=== PATIENT | female | born 2000 | race Native Hawaiian/Other Pacific Islander ===

== ENCOUNTER 2025-01-24 21:56 | Emergency (ER) | payer BC, SELFPAY ==
--- OUTSIDE RECORDS SUMMARY | 2025-01-24 21:57 | XMS_ITS | Clinical Summary ---
Author Organization [employer] [facility] Address [address] [place] [address] Care Team Providers Care Orthopedic Shoes Salesperson Name Role Phone Sheyla Jiang MD Primary Care Provider Allergies No known active allergies Medications No known medications Active Problems Problem Noted Date Diagnosed Date LGSIL of cervix of undetermined significance Overview (08/28/2024): 08/2023 LSIL 08/2024 LSIL. Plan: Pap due 08/2025. Amenorrhea 04/29/2017 Unspecified adjustment reaction 05/01/2011 UTI (lower urinary tract infection) 05/01/2011 Obesity, unspecified 06/19/2008 Resolved Problems Problem Noted Date Diagnosed Date Resolved Date Posttraumatic wound infectio n not elsewhere classified 06/19/2008 11/14/2008 Immunizations Immunization Administration Dates Next Due COVID-19 vaccine (VetCloudBio NTech 30mcg/0.3mL) PF, MDV 02/24/2021,02/03/2021 DTaP 11/21/2005, 3,01/20/2002,11/25,2001 HIB-HepB (Comvax) 12/04/2002,2001,08/11/20 01 Hepatitis A (Peds) 06/03/2012,11/14/2008 Human Papilloma Virus Vaccine 12/19/2013, 013,06/03/2012 INFLUENZA, IIV3 PF (AGE >= 6 MO) 08/18/2024 Inactivated Polio Vaccine 05/21/2006,,2001,08/11 Influenza, IIV3 (Age >=3 years) 08/20/2011,11/14 Influenza, IIV4 08/16/2023 Influenza, IIV4 (=>6mos) MDV 07/23/2020 MENINGOCOCCAL VACCINE 2 VIAL 2MO-55YO (MENVEO) 06/03/2012 MMR 05/21/2006,06/30/2002 Pneumococcal conj 7-Valent (Prevnar 7) 0 12/04/2002,01/20/2002,2001,08/11 Tdap 08/16/2023,06/03/2012 Varicella Vaccine 11/14/2008,06/30/2002 Family History Medical History Relation Name Comments Cancer Brother brain, passed a way Diabetes Maternal Grandmother Diabetes Maternal Uncle Anesthesia Problem No Family History Blood Disease No Family History Relation Name Status Comments Brother Maternal Grandmother Maternal Uncle Social History Tobacco Use Types Packs/Day Years Used Date Smoking Tobacco: Never Smokeless Tobacco: Never Tobacco Cessation:Counseling Given: Yes Comments:no exposure Alcohol Use Standard Drinks/Week Comments No 0 (1 standard drink = 0.6 oz pur e alcohol) PHQ-2 Answer Date Recorded PHQ-2 TOTAL SCORE 3 08/18/2024 Social Connections Answer Date Recorded Do you often feel lonely or isolated from those around you? 0 09/03/2023 Financial Resource Strain Answer Date R ecorded Difficulty of Paying Living Expenses 2 09/03/2023 Difficulty of Paying Living Expenses 1 09/03/2023 Food Insecurity Answer Date Recorded Do you worry your food will run out before you are able to buy more? 1 09/03/2023 Transportation Needs Answer Date Record ed Does lack of transportation keep you from medica l appointments? 1 09/03/2023 Does lack of transportation keep you from work, meetings or getting things that you need? 1 09/03/2023 Housing Stability Answer Date Recorded What is your housing situation today? 1 09/03/2023 Comments No Sex and Gender Information Value Date Recorded Sex Assigned at Not on file Legal Sex Female 5:44 AM ELECTRICAL TRYOUT PERSON Gender Identity Not on file Sexual Orientation Not on file Obstetrics History Last Filed Vital Signs Vital Sign Reading Time Taken Comments Blood Pressure 111/78 08/18/2024 9:07 AM ELECTRICAL TRYOUT PERSON Pulse 73 08/18/2024 9:07 AM ELECTRICAL TRYOUT PERSON Temperature 36.7 C (98.1 F) 11/12/2023 4:31 PM ELECTRICAL TRYOUT PERSON Respiratory Rate 16 11/12/2023 4:50 PM ELECTRICAL TRYOUT PERSON Oxygen Saturation 99% 08/18/2024 9:07 AM ELECTRICAL TRYOUT PERSON Inhaled Oxygen Concentration - - Weight 142.4 kg (314 lb) 08/18/2024 9:07 AM ELECTRICAL TRYOUT PERSON Height 162.6 cm (5' 4) 08/18/2024 9:07 AM ELECTRICAL TRYOUT PERSON Body Mass Index 53.9 08/18/2024 9:07 AM ELECTRICAL TRYOUT PERSON Plan of Treatment Health Maintenance Due Date Last Done Comments COVID-19 vaccine series ( season) 2024 02/24/2021, 02/03/2021 BMI (ht and wt on same day) for age 18+ 08/18/2025 08/18/2024, 10/12/2023, 08/16/2023 Depression screening for age 12+ 08/18/2025 08/18/2024, 08/16/2023, 04/29/2017 Pap test for age 21-65 08/18/2025 08/18/2024, 2022 Tetanus booster 08/16/2033 08/16/2023, 06/03/2012 Pneumococcal series for age 6-49 Aged Out 12/04/2002, 01/20/2002, 2001, Additional history exists No longer eligible based on patient's age to complete this topic HPV series for age 9-26 Completed 12/20/19 14, 05/24/2013, 06/03/2012 HIV for age 15-65 Completed 08/16/2023 Hepatitis C screening for age 18-79 Completed 08/16/2023 Tdap Completed 08/16/2023, 06/03/2012 Influenza Vaccine Completed 08/18/2024, , 07/23/2020, Additional history exists Medical Devices Implanted Type Area Inspector Tester Sorter Device Identifier Shelf Expiration Date Model / Serial / Lot Sys Intrauterine Mirena - [id number] Implanted:Qty: 1 on 11/12/2023 by Brad Mcfadden MD at [facility] N/A: Uterus Nival 09/03/2025 [id number] / / [id number] Procedures Procedure Name Priority Date/Time Associated Diagnosis Comments BUSINESS TRANSFORMATION CONSULTANT THIN PREP PAP - AGES 21-24 ([facility]) Routine 08/18/2024 10:29 AM ELECTRICAL TRYOUT PERSON Screening for cervical cancer ANTI HIV 1/2 Routine 08/16/2023 8:27 AM ELECTRICAL TRYOUT PERSON Screening for HIV (human immunodeficiency virus) ANTI HCV Routine 08/16/2023 8:27 AM ELECTRICAL TRYOUT PERSON Need for hepatitis C screening test from Last 3 Months or Most Recently Relevant to Health Maintenance Results * (ABNORMAL) BUSINESS TRANSFORMATION CONSULTANT THIN PREP PAP - AGES 21-24 ([facility]lynx) [[id number]] (08/18/2024 10:29 AM ELECTRICAL TRYOUT PERSON) CLINICAL INFORMATION [employer] Comment:None given LMP [employer] [place] Comment:HORMONALLY SUPRESSED PREV. PAP [employer] [place] Comment:LSIL PREV. BX [employer] [place] Comment:NONE SOURCE BUSINESS TRANSFORMATION CONSULTANT [employer] salv[place] Comment:Cervix STATEMENT OF ADEQUACY [employer] salv[place] Comment: Satisfactory for evaluation. Endocervical/transformation zone component present. GENERAL CATEGORIZATION (A) [employer] salv[place] Comment:Cytology Results: Ep ithelial Cell Abnormality INTERPRETATION/RESUL T (A) [employer] Comment:Low Grade Squamous I ntraepithelial Lesion (LSIL) COMMENT [employer] [place] Comment: This Pap test has been evaluated with computer assisted technology. Suggest clinical correlation and follow-up as clinically appropriate DISCHARGE COORDINATOR Que [employer] salvador Comment: SARAHS, CT(ASCP) CT Screening location: [address] [address] PATHOLOGIST [facility] [employer] salv[place] Comment: Debi Ribeiro MD Board Certified in Anatomic Pathology and Clinical Pathology (electronic signature) THINPREP TIS PAP ALWAYS MESSAGE [employer] salv[place] Comment: EXPLANATORY NOTE: The Pap is a screening test for cervical cancer. It is not a diagnostic test and is subject to false negative and false positive results. It is most reliable when a satisfactory sample, regularly obtained, is submitted with relevant clinical findings and history, and when the Pap result is evaluated along with historic and current clinical information. Other (Cervical) 08/18/2024 10:29 AM ELECTRICAL TRYOUT PERSON 08/19/2024 5:15 AM ELECTRICAL TRYOUT PERSON Sheyla Jiang MD PATHOLOGY/CYTOLOGY Syeda l Result Performing Organization Address City/[facility]/ZIP Co de Phone Number [facility] [address] [place] [address], [facility] [address] [place] [address] * ANTI HCV (08/16/2023 8:27 AM ELECTRICAL TRYOUT PERSON) HEPATITIS C ANTIBODY Non-Reacti ve Non-React addi 08/16/2023 4:06 PM ELECTRICAL TRYOUT PERSON [facility] Comment:Please note, per www .CDC.gov: If a patient is known to be at high risk of HCV infection, or is symptomatic, and the physician's suspicion of HCV infection is high, HCV RNA testing is often employed and is of diagnostic value, even after an initial negative anti-HCV test result. Blood BLOOD SPECIMEN / Unknown Venipuncture / Unknown 08/16/2023 8:27 AM ELECTRICAL TRYOUT PERSON 08/16/2023 8:27 AM ELECTRICAL TRYOUT PERSON Sheyla Jaing MD SEND OUTS Final R esult Performing Organization Address City/[facility]/ZIP Co de Phone Number [facility] [address] [place] [address], [place] * ANTI HIV 1/2 [[id number]] (08/16/2023 8:27 AM ELECTRICAL TRYOUT PERSON) HIV-1/HIV-2 SCREEN Non-Reacti ve Non-Reacti ve 08/16/2023 3:32 PM ELECTRICAL TRYOUT PERSON [facility] Comment:HIV-1 p24 and HIV-1/ HIV-2 Ab Not Detected. Blood BLOOD SPECIMEN / Unknown Venipuncture / Unknown 08/16/2023 8:27 AM ELECTRICAL TRYOUT PERSON 08/16/2023 8:27 AM ELECTRICAL TRYOUT PERSON Sheyla Jiang MD SEND OUTS Final R esult [facility] [address] [place] [address], from Last 3 Months or Most Recently Relevant to Health Maintenance Insurance [facility] NON-NM-ITS Advance Directives * Full Code (Latest Code Status on File) Date Activated Date Inactivated Comments 11/12/2023 11:05 AM 11/12/2023 7:19 PM Question Answer Comments Code Status Discussion: Reviewed Preferences Care Teams Orthopedic Shoes Salesperson Relationship Specialty Start Date End Date Sheyla Jiang MD [facility] [place] [address] PCP - General Family Practice 12/05/13
[2025-01-24 22:15] VITALS: BP 119/77; PULSE 75; RESP 18; TEMP 36.3; O2SAT 96
--- NOTE | 2025-01-24 23:35 | ED_ITS ---
HPI - General Adult General Time Seen by Provider: 23:35 Date Seen: 01/24/25 Chief complaint: Extremity Pain/Injury, Lower Stated complaint: Left big toe pain Time Seen by Provider: 01/24/25 23:30 Source: patient and RN notes reviewed Mode of arrival: ambulatory Limitations: no limitations History of Present Illness HPI narrative: This 24-year-old female comes in with left big toe pain. She trimmed her nail on this toe about 2 days ago, feel she cut it too short. She has not noticed any drainage. It is the outside of the nail fold that hurts. Her mom looked at it, thought it might be infected. It is painful to touch, she can still walk. She is walking with open toed shoes right now. Review of Systems Status of ROS: Reports: 6 or more systems reviewed and unremarkable except as noted in History and below PFSH PFSH Social History Smoking Status: Never smoker Do you use any of these nicotine containing products: None How often do you have a drink containing alcohol: never AUDIT-C Alcohol total score: 0 Non-prescribed substance use: denies use Exam Const: Vital Signs, click to edit/add: Vital Signs - 24 hr 01/24/25 22:15 Temperature 97.3 F L Pulse Rate [Pulse Oximeter] 75 Respiratory Rate 18 Blood Pressure [] 119/77 Pulse Oximetry 96 Oxygen Delivery Me thod Room Air This 24-year-old female is alert, interactive, no apparent distress. She is afebrile. Her lateral nail fold of her 1st big toe is erythematous, tender, swollen. There is no drainage, no fluctuance. Her nail is trimmed quite short on this toe. Documenting provider has reviewed patient's vital signs: yes Course Course ED Course: Patient would appear to have an infected ingrown toenail. There is no fluctuance, nothing to drain at this time. Discussed that we should initiate antibiotics, will give her Keflex from [facility], 20 pills at 3 times a day. Reviewed warm soaks and follow up in clinic with her primary, consider podiatry consultation. Vital Signs Vital signs: Initial Vital Signs Temperature 97.3 F L 01/24/25 22:15 Temperature Source Temporal Artery Scan 01/24/25 22:15 Pulse Rate 75 01/24/25 22:15 Respiratory Rate 18 01/24/25 22:15 Blood Pressure 119/77 01/24/25 22:15 Blood Pressure Mean 91 01/24/25 22:15 Blood Pressure Position Sitting 01/24/25 22:15 Pulse Oximetry 96 01/24/25 22:15 Oxygen Delivery Method Room Air 01/24/25 22:15 Vital Signs Temperature 97.3 F L 01/24/25 22:15 Pulse Rate 75 01/24/25 22:15 Respiratory Rate 18 01/24/25 22:15 Blood Pressure 119/77 01/24/25 22:15 Pulse Oximetry 96 01/24/25 22:15 Oxygen Delivery Method Room Air 01/24/25 22:15 Temperature 97.3 F L 01/24/25 22:15 Pulse Rate 75 01/24/25 22:15 Respiratory Rate 18 01/24/25 22:15 Blood Pressure 119/77 01/24/25 22:15 Pulse Oximetry 96 01/24/25 22:15 Oxygen Delivery Method Room Air 01/24/25 22:15 Discharge Plan Discharge Clinical Impression: Ingrown toenail of left foot with infection Patient Disposition: Home, Self-Care Condition: Stable Instructions: Ingrown Nail (ED), Warm Compress or Soak (ED) Additional Instructions: Take the Keflex 500 mg 3 times a day until completed. Can use Tylenol and ibuprofen per bottle directions as needed for pain control. Do warm soaks of t his toe, warm water for 10-15 minutes 3 to 4 times a day for the next 3-5 days. Need to follow-up with your primary care provider in clinic. Consider podiatry consultation. Activity Level: Activity as Tolerated Stand Alone Forms: MyHealth Info Instructions
--- OUTSIDE RECORDS SUMMARY | 2025-01-24 23:50 | XMS_ITS | Clinical Summary ---
Author Organization [employer] [facility] Address [address] [place] [address] Care Team Providers Care Streetcar Starter Name Role Phone Sheyla Jiang MD Primary [...] Immunization Administration Dates Next Due COVID-19 vaccine ([employer]cloud ([place]) Information and TechnologyBio NTech 30mcg/0.3mL) PF, MDV 02/24/2021,02/03/2021 DTaP 11/21/2005, [...] on file Legal Sex Female 5:44 AM BREADMAN Gender Identity Not on file Sexual Orientation Not on file Obstetrics History Last Filed Vital Signs Vital Sign Reading Time Taken Comments Blood Pressure 111/78 08/18/2024 9:07 AM BREADMAN Pulse 73 08/18/2024 9:07 AM BREADMAN Temperature 36.7 C (98.1 F) 11/12/2023 4:31 PM BREADMAN Respiratory Rate 16 11/12/2023 4:50 PM BREADMAN Oxygen Saturation 99% 08/18/2024 9:07 AM BREADMAN Inhaled Oxygen Concentration - - Weight 142.4 kg (314 lb) 08/18/2024 9:07 AM BREADMAN Height 162.6 cm (5' 4) 08/18/2024 9:07 AM BREADMAN Body Mass Index 53.9 08/18/2024 9:07 AM BREADMAN Plan of Treatment Health Maintenance Due Date [...] history exists Medical Devices Implanted Type Area Dock Operations Supervisor Device Identifier Shelf Expiration Date Model / Serial / Lot Sys Intrauterine Mirena - [id number] Implanted:Qty: 1 on 11/12/2023 by Brad Mcfadden MD at [facility] N/A: Uterus Stootie 09/03/2025 [id number] / / [id number] Procedures Procedure Name Priority Date/Time Associated Diagnosis Comments FAMILY CONSULTANT THIN PREP PAP - AGES 21-24 ([facility]) Routine 08/18/2024 10:29 AM BREADMAN Screening for cervical cancer ANTI HIV 1/2 Routine 08/16/2023 8:27 AM BREADMAN Screening for HIV (human immunodeficiency virus) ANTI HCV Routine 08/16/2023 8:27 AM BREADMAN Need for hepatitis C screening test from Last 3 Months or Most Recently Relevant to Health Maintenance Results * (ABNORMAL) FAMILY CONSULTANT THIN PREP PAP - AGES 21-24 ([facility]) [[id number]] (08/18/2024 10:29 AM BREADMAN) CLINICAL INFORMATION [employer] Comment:None given LMP [employer] [place] Comment:HORMONALLY SUPRESSED PREV. PAP [employer] [place] Comment:LSIL PREV. BX [employer] [place] Comment:NONE SOURCE FAMILY CONSULTANT [employer] salv[place] Comment:Cervix STATEMENT OF ADEQUACY [employer] [place] Comment: Satisfactory for evaluation. Endocervical/transformation zone component present. GENERAL CATEGORIZATION (A) [employer] [place] Comment:Cytology Results: Ep ithelial Cell Abnormality INTERPRETATION/RESUL T (A) [employer] Comment:Low Grade Squamous I ntraepithelial Lesion (LSIL) COMMENT [employer] [place] Comment: This Pap test has been evaluated with computer assisted technology. Suggest clinical correlation and follow-up as clinically appropriate RECEPTION Que [employer] salv[place] Comment: SARAHS, CT(ASCP) CT Screening location: [address] [address] PATHOLOGIST [facility] [employer] salvador Comment: Debi Ribeiro MD Board Certified in Anatomic Pathology and Clinical Pathology (electronic signature) THINPREP TIS PAP ALWAYS MESSAGE [employer] salv[place] Comment: EXPLANATORY NOTE: The Pap is [...] clinical information. Other (Cervical) 08/18/2024 10:29 AM BREADMAN 08/19/2024 5:15 AM BREADMAN Sheyla Jiang MD PATHOLOGY/CYTOLOGY Syeda l Result Performing Organization Address City/[facility]/ZIP Co de Phone Number [facility] [place] [address] [place] [address], [facility] [address] [place] [address] * ANTI HCV (08/16/2023 8:27 AM BREADMAN) HEPATITIS C ANTIBODY Non-Reacti ve Non-React addi 08/16/2023 4:06 PM BREADMAN [facility] Comment:Please note, per www .CDC.gov: If a patient is known to be at high risk of HCV infection, or is symptomatic, and the physician's suspicion of HCV infection is high, HCV RNA testing is often employed and is of diagnostic value, even after an initial negative anti-HCV test result. Blood BLOOD SPECIMEN / Unknown Venipuncture / Unknown 08/16/2023 8:27 AM BREADMAN 08/16/2023 8:27 AM BREADMAN Sheyla Jiang MD SEND OUTS Final R esult Performing Organization Address City/[facility]/ZIP Co de Phone Number [facility] [address] [place] [address], [place] * ANTI HIV 1/2 [93786.0] (08/16/2023 8:27 AM BREADMAN) HIV-1/HIV-2 SCREEN Non-Reacti ve Non-Reacti ve 08/16/2023 3:32 PM BREADMAN [facility] Comment:HIV-1 p24 and HIV-1/ HIV-2 Ab Not Detected. Blood BLOOD SPECIMEN / Unknown Venipuncture / Unknown 08/16/2023 8:27 AM BREADMAN 08/16/2023 8:27 AM BREADMAN Sheyla Jiang MD SEND OUTS Final R esult [facility] [address] [place] [address], from Last 3 Months or Most Recently Relevant to Health Maintenance Insurance [facility] OF NON-[place]-ITS Advance Directives * Full Code (Latest Code Status on File) Date Activated Date Inactivated Comments 11/12/2023 11:05 AM 11/12/2023 7:19 PM Question Answer Comments Code Status Discussion: Reviewed Preferences Care Teams Streetcar Starter Relationship Specialty Start Date End Date Sheyla Jiang MD [facility] [place] [address] PCP - General Family Practice 12/05/13
== END 2025-01-24 23:52 | disposition home or self-care (01) ==
LOC: ED 23:48
PROVIDERS: Emergency Provider Family Medicine; PCP Family Medicine
DX: L60.0 Ingrowing nail (principal); L08.9 Local infection of the skin and subcutaneous tissue, unspecified
CPT/HCPCS: 99282; 99283

== ENCOUNTER 2025-05-20 13:11 | Emergency (ER) | payer BC, SELFPAY ==
--- OUTSIDE RECORDS SUMMARY | 2025-05-20 13:13 | XMS_ITS | Clinical Summary ---
Author Organization [facility] Address [address] [place] [id number] Care Team Providers Care Handle Maker Name Role Phone Sheyla Jiang MD Primary [...] Immunization Administration Dates Next Due COVID-19 vaccine ([employer]oomset[employer] NTech 30mcg/0.3mL) PF, MDV 02/24/2021,02/03/2021 DTaP 11/21/2005, [...] on file Legal Sex Female 5:44 AM SECURITY TEAM LEAD Gender Identity Not on file Sexual Orientation Not on file Obstetrics History Last Filed Vital Signs Vital Sign Reading Time Taken Comments Blood Pressure 111/78 08/18/2024 9:07 AM SECURITY TEAM LEAD Pulse 73 08/18/2024 9:07 AM SECURITY TEAM LEAD Temperature 36.7 C (98.1 F) 11/12/2023 4:31 PM SECURITY TEAM LEAD Respiratory Rate 16 11/12/2023 4:50 PM SECURITY TEAM LEAD Oxygen Saturation 99% 08/18/2024 9:07 AM SECURITY TEAM LEAD Inhaled Oxygen Concentration - - Weight 142.4 kg (314 lb) 08/18/2024 9:07 AM SECURITY TEAM LEAD Height 162.6 cm (5' 4) 08/18/2024 9:07 AM SECURITY TEAM LEAD Body Mass Index 53.9 08/18/2024 9:07 AM SECURITY TEAM LEAD Plan of Treatment Health Maintenance Due Date Last Done Comments COVID-19 vaccine series ( season) 2024 02/24/2021, 02/03/2021 Influenza Vaccine (#1) 2025 , 08/16/2023, 07/23/2020, Additional history exists BMI (ht and wt on same day) for age 18+ 08/18/2025 08/18/2024, 10/12/2023, 08/16/2023 Depression screening for age 12+ 08/18/2025 08/18/2024, 08/16/2023, 04/29/2017 Pap test for age 21-65 08/18/2025 08/18/2024, 2022 Tetanus booster 08/16/2033 08/16/2023, 06/03/2012 Hepatitis B series for 19+ Completed 12/04, 2001, 2001 Pneumococcal series for age 6-49 Aged Out 12/04/2002, 01/20/2002, 2001, Additional history exists No longer eligible based on patient's age to complete this topic HPV series for age 9-26 Completed 12/20/19 14, 05/24/2013, 06/03/2012 HIV for age 15-65 Completed 08/16/2023 Hepatitis C screening for age 18-79 Completed 08/16/2023 Medical Devices Implanted Type Area Habitat Management Coordinator Device Identifier Shelf Expiration Date Model / Serial / Lot Sys Intrauterine Mirena - [id number] Implanted:Qty: 1 on 11/12/2023 by Brad Mcfadden MD at [facility] N/A: Uterus RingTu 09/03/2025 [id number] / / [id number] Procedures Procedure Name Priority Date/Time Associated Diagnosis Comments DONOR RELATIONS OFFICER THIN PREP PAP - AGES 21-24 (More[employer]) Routine 08/18/2024 10:29 AM SECURITY TEAM LEAD Screening for cervical cancer ANTI HIV 1/2 Routine 08/16/2023 8:27 AM SECURITY TEAM LEAD Screening for HIV (human immunodeficiency virus) ANTI HCV Routine 08/16/2023 8:27 AM SECURITY TEAM LEAD Need for hepatitis C screening test from Last 3 Months or Most Recently Relevant to Health Maintenance Results * (ABNORMAL) DONOR RELATIONS OFFICER THIN PREP PAP - AGES 21-24 ([employer]) [[id number]] (08/18/2024 10:29 AM SECURITY TEAM LEAD) CLINICAL INFORMATION [employer] Comment:None given LMP [employer] [facility] Comment:HORMONALLY SUPRESSED PREV. PAP [employer] [facility] Comment:LSIL PREV. BX [employer] [facility] Comment:NONE SOURCE DONOR RELATIONS OFFICER [employer] [facility] Comment:Cervix STATEMENT OF ADEQUACY [employer] [facility] Comment: Satisfactory for evaluation. Endocervical/transformation zone component present. GENERAL CATEGORIZATION (A) [employer] [facility] Comment:Cytology Results: Ep ithelial Cell Abnormality INTERPRETATION/RESUL T (A) [employer] [facility] Comment:Low Grade Squamous I ntraepithelial Lesion (LSIL) COMMENT [employer] [facility] Comment: This Pap test has been evaluated with computer assisted technology. Suggest clinical correlation and follow-up as clinically appropriate VENDING MANAGER [employer] [facility] Comment: SZS, CT(ASCP) CT Screening location: [address] [address] PATHOLOGIST [employer] salvador Comment: Debi Ribeiro MD Board Certified in Anatomic Pathology and Clinical Pathology (electronic signature) THINPREP TIS PAP ALWAYS MESSAGE [employer] [facility] Comment: EXPLANATORY NOTE: The Pap is a [...] clinical information. Other (Cervical) 08/18/2024 10:29 AM SECURITY TEAM LEAD 08/19/2024 5:15 AM SECURITY TEAM LEAD Sheyla Jiang MD PATHOLOGY/CYTOLOGY Syeda l Result Performing Organization Address City/[facility]/ZIP Co de Phone Number [facility] [address] [place] [address], [facility] [address] [place] [address] * ANTI HCV (08/16/2023 8:27 AM SECURITY TEAM LEAD) HEPATITIS C ANTIBODY Non-Reacti ve Non-React addi 08/16/2023 4:06 PM SECURITY TEAM LEAD [facility] Comment:Please note, per www .CDC.gov: If a patient is known to be at high risk of HCV infection, or is symptomatic, and the physician's suspicion of HCV infection is high, HCV RNA testing is often employed and is of diagnostic value, even after an initial negative anti-HCV test result. Blood BLOOD SPECIMEN / Unknown Venipuncture / Unknown 08/16/2023 8:27 AM SECURITY TEAM LEAD 08/16/2023 8:27 AM SECURITY TEAM LEAD Sheyla Jiang MD SEND OUTS Final R esult [facility] [address] [place] [address], [place] * ANTI HIV 1/2 [46044.0] (08/16/2023 8:27 AM SECURITY TEAM LEAD) HIV-1/HIV-2 SCREEN Non-Reacti ve Non-Reacti ve 08/16/2023 3:32 PM SECURITY TEAM LEAD [facility] Comment:HIV-1 p24 and HIV-1/ HIV-2 Ab Not Detected. Blood BLOOD SPECIMEN / Unknown Venipuncture / Unknown 08/16/2023 8:27 AM SECURITY TEAM LEAD 08/16/2023 8:27 AM SECURITY TEAM LEAD Sheyla Jiang MD SEND OUTS Final R esult [facility] [address] [place] [address], [place] from Last 3 Months or Most Recently Relevant to Health Maintenance Insurance [employer] [place] [employer] Advance Directives * Full Code (Latest Code Status on File) Date Activated Date Inactivated Comments 11/12/2023 11:05 AM 11/12/2023 7:19 PM Question Answer Comments Code Status Discussion: Reviewed Preferences Care Teams Handle Maker Relationship Specialty Start Date End Date Sheyla Jiang MD [address] [place] [address] PCP - General Family Practice 12/05/13
[2025-05-20 13:39] VITALS: BP 135/96; PULSE 92; RESP 18; TEMP 36.7; O2SAT 99; BMI 51.4
--- NOTE | 2025-05-20 13:48 | ED_ITS ---
HPI - Female Genitourinary General Time Seen by Provider: 13:48 Date Seen: 05/20/25 Chief complaint: Urogenital Problems, Female Stated complaint: pain in uterus Time Seen by Provider: 05/20/25 13:48 Source: patient Mode of arrival: ambulatory Limitations: no limitations History of Present Illness HPI Narrative: 24-year-old female who presents with urinary symptoms. Patient has dysuria, urinary frequency, low abdominal pain starting yesterday. No fever, chills, vaginal bleeding, flank pain. She is concerned that her IUD may be malposition or have fallen out causing the symptoms. Related Data Home Medications ?Medication ?Instructions ?Recorded ?Confirmed No Known Home Medications 05/20/2505/04 Allergies Allergy/AdvReac Type Severity Reaction Status Date / Time No Known Drug Allergies Allergy Verified 05/20/25 13:42 PFSH PFSH Social History Smoking Status: Never smoker Do you use any of these nicotine containing products: None How often do you have a drink containing alcohol: never AUDIT-C Alcohol total score: 0 Non-prescribed substance use: denies use Exam Narrative: Exam Narrative: General: Well-developed and well-nourished, no acute distress Head: Atraumatic and normocephalic Eyes: Pupils are equal reactive, extraocular motions intact, conjunctiva clear ENT: External nose and ears are normal, posterior pharynx without erythema or exudate Neck: No midline cervical tenderness, full spontaneous range of motion the neck, trachea midline, no adenopathy Heart: Regular rate and rhythm no murmurs or thrills Lungs: Clear to auscultation bilaterally without wheezes or crackles Abdomen: Soft, suprapubic tenderness Musculoskeletal: No tenderness, deformity, or edema Neurologic: Awake, alert, and oriented x3, no gross focal neurologic deficits, cranial nerves intact as tested Psych: Mood and affect are appropriate Skin: No rashes Const: Vital Signs, click to edit/add: Vital Signs - 24 hr 05/20/25 13:39 Temperature 98.0 F Pulse Rate [Pulse Oximeter] 92 Respiratory Rate 18 Blood Pressure [Ri ght Upper Arm] 135/96 H Pulse Oximetry 99 Oxygen Delivery Me thod Room Air Course Course ED Course: Reviewed most recent primary care visit from September 2024 when patient was seen for a physical, at that time patient was concerned about a menorrhea, denies smoking, vital is stable, morbid obesity. Patient seen examined, presents with suprapubic pain, dysuria, urinary frequency since yesterday. Vitally stable, suprapubic tenderness, symptoms are most consistent with urinary tract infection, however patient is concerned this could be from her IUD. She has no vaginal bleeding or spotting, however is unsure if the IUD is still in place and is concerned about malposition. Urinalysis ordered along with CT scan, as patient is not sure for IUD is in place or not, test will be performed as well. Reevaluation(s) Time of Reevaluation #1: 15:15 Reevaluation #1: Labs independently interpreted by me with urinalysis with trace blood, the pr egnancy test negative. CT scan of the abdomen pelvis shows inflammatory changes along the distal colon consistent with diverticulitis. IUD appropriately positioned. Time of Reevaluation #2: 15:52 Reevaluation #2: Reviewed radiology interpretation of CT scan which agrees with my initial interpretation. Patient will be started on Augmentin. We did discuss follow-up with primary care likely colonoscopy given patient's young age. Vital Signs Vital signs: Initial Vital Signs Temperature 98.0 F 05/20/25 13:39 Temperature Source Temporal Artery Scan 05/20/25 13:39 Pulse Rate 92 05/20/25 13:39 Pulse Rhythm Regular 05/20/25 13:39 Respiratory Rate 18 05/20/25 13:39 Blood Pressure 135/96 H 05/20/25 13:39 Blood Pressure Mean 109 H 05/20/25 13:39 Blood Pressure Position Sitting 05/20/25 13:39 Pulse Oximetry 99 05/20/25 13:39 Oxygen Delivery Method Room Air 05/20/25 13:39 Vital Signs Temperature 98.0 F 05/20/25 13:39 Pulse Rate 92 05/20/25 13:39 Respiratory Rate 18 05/20/25 13:39 Blood Pressure 135/96 H 05/20/25 13:39 Pulse Oximetry 99 05/20/25 13:39 Oxygen Delivery Method Room Air 05/20/25 13:39 Temperature 98.0 F 05/20/25 13:39 Pulse Rate 92 05/20/25 13:39 Respiratory Rate 18 05/20/25 13:39 Blood Pressure 135/96 H 05/20/25 13:39 Pulse Oximetry 99 05/20/25 13:39 Oxygen Delivery Method Room Air 05/20/25 13:39 MDM - Female Genitourinary Lab Data Labs: Lab Results 05/20/25 05/20/25 Range/Units 13:35 14:24 Urine Color Yellow (Yellow) Urine Appearance Clear (Clear) Urine pH 7.0 (5.0-8.5) Ur Specific [place] 1.025 (1.000-1.030) Urine Protein Negative (Negative) Urine Glucose (UA) Negative (Negative) Urine Ketones Negative (Negative) Urine Blood Trace-intact A (Negative) Urine Nitrite Negative (Negative) Urine Bilirubin Negative (Negative) Urine Urobilinogen 1.0 (0.2-1.0) Ur Leukocyte Esterase Negative (Negative) Urine RBC 0-2 (0-2) Urine WBC 0-2 (0-5) Ur Squamous Epith Cells Few (None-Few) Urine Bacteria Few A (None) Lab Acknowledgement Test Added Discharge Plan Discharge Clinical Impression: Acute diverticulitis Patient Disposition: Home, Self-Care Instructions: Diverticulitis (DC), Diverticulitis Diet (ED) Additional Instructions: Take Tylenol and ibuprofen as needed for pain Take antibiotics as prescribed Follow-up with your primary care provider in 2-3 weeks for recheck and discussion of colonoscopy Activity Level: Activity as Tolerated Discharge Diet: Regular Prescriptions: No Action No Known Home Medications Follow Up/Referrals: Sheyla Jiang MD [Primary Care Provider, Family Practice] Stand Alone Forms: [facility] Info Instructions
[2025-05-20 13:49] LABS: Appearance Urine Clear (Clear)
--- NOTE | 2025-05-20 13:56 | CRLHL7_ITS ---
For Patients: As a result of the Century Cures Act, medical imaging exams and procedure reports are released immediately into your electronic medical record. You may view this report before your referring provider. If you have questions, please contact your health care provider. INDICATION: Pelvic pain. Concern for IUD malpositioning. TECHNIQUE: CT pelvis acquired without contrast. COMPARISON: None. FINDINGS: Visualized bowel: Extensive inflammatory changes are associated with multiple proximal sigmoid colonic diverticula, compatible with multifocal acute diverticulitis. Bladder: Unremarkable for degree of distension. Reproductive organs: Anteverted uterus. Intrauterine contraceptive device is in place, does not appear abnormally positioned within limitations of unenhanced study. Pelvic lymph nodes: No lymphadenopathy. Vessels: Unremarkable for unenhanced study. Abdominal wall: No acute abdominal wall abnormality. Bones: No suspicious/aggressive focal osseous lesion. IMPRESSION: Multiple foci of acute diverticulitis at the proximal sigmoid colon. Please note that all CT scans at this facility use dose modulation, iterative reconstruction, and/or weight-based dosing when appropriate to reduce radiation dose to as low as reasonably achievable. Dictated by Ej Cohn MD @ 05/20/2025 3:47:03 PM (Electronically Signed)
== END 2025-05-20 15:58 | disposition home or self-care (01) ==
PROVIDERS: Emergency Provider Family Medicine; PCP Family Medicine
DX: K57.32 Diverticulitis of large intestine without perforation or abscess without bleeding (principal)
CPT/HCPCS: 72192; 81001; 81025; 87086; 99283; 99284